=== PATIENT | male | born 1995 | race Asian ===

== ENCOUNTER 2021-02-09 18:27 | Emergency (ER) | payer OTHER ==
[~2021-02-09] VITALS: Ht 175.3 cm; Wt 73.5 kg
--- NOTE | 2021-02-09 18:54 | NUR ---
PT C/O CHEST PAIN NON RADIATING WITH SOB X 1HR PER PT. DENIES DIZZINESS, N/V AT THIS TIME. PT SEEN & EVAL'D BY LEONARDO ARIAS. PLACED ON [employer] REPRESENTATIVE DOOR TO DOOR, ST. WILL CONT TO MONITOR.
[2021-02-09] MEDS ORDERED: ACETAMINOPHEN ES 500 MG TABLET ONE (18:56)
[2021-02-09 18:58] LABS: BASOPHILS # (AUTO) 0.1 /CMM (0.0-0.2); BASOPHILS % (AUTO) 0.3 % (0.0-2.0); HEMATOCRIT 43 % (39-51); LYMPHOCYTES # (AUTO) 11.3 /CMM (0.8-4.8); LYMPHOCYTES % (AUTO) 61.1 % (20.0-44.0); MEAN CORPUSCULAR HGB CONC 35 g/dl (31.0-36.0); MEAN CORPUSCULAR VOLUME 77 fL (80-96); MONOCYTES # (AUTO) 1.2 /CMM (0.1-1.30); MONOCYTES % (AUTO) 6.2 % (2.0-12.0); NEUTROPHILS # (AUTO) 5.8 /CMM (1.8-8.9); NEUTROPHILS % (AUTO) 31.4 % (43.0-81.0); PLATELET COUNT (AUTO) 133 /CMM (150-450); RED BLOOD CELL COUNT(AUTO) 5.67 MIL/uL (4.5-6.0); WHITE BLOOD COUNT (AUTO) 18.6 K/uL (4.3-11.0)
[2021-02-09] MEDS ORDERED: ACETAMINOPHEN ES 500 MG TABLET PO ONE (19:00)
[2021-02-09] MEDS ORDERED: IV NS 0.9% 1,000 ML BAG IV ONE (19:00)
[2021-02-09 19:14] LABS: ALANINE AMINOTRANSFERASE 60 U/L (12-78); ALBUMIN 4.1 g/dL (3.4-5.0); ALKALINE PHOSPHATASE 78 U/L (46-116); ASPARTATE AMINOTRANSFERASE 36 U/L (15-37); BILIRUBIN,DIRECT 0.1 mg/dL (0.0-0.2); BILIRUBIN,TOTAL 0.4 mg/dL (0.2-1.0); CALCIUM, SERUM 8.6 mg/dL (8.5-10.1); CARBON DIOXIDE 26 mmol/L (21-32); CHLORIDE 103 mmol/L (98-107); CREATININE 1.2 mg/dL (0.6-1.3); GLUCOSE 115 mg/dL (74-106); POTASSIUM 3.5 mmol/L (3.5-5.1); SODIUM SERUM 138 mmol/L (136-145); TOTAL PROTEIN, SERUM 7.4 g/dL (6.4-8.2); UREA NITROGEN, BLOOD 8 mg/dL (7-18)
[2021-02-09 19:44] LABS: BILIRUBIN,URINE Negative (NEGATIVE); COLOR,URINE YELLOW (YELLOW); LEUKOCYTE ESTERASE ,URINE Negative (NEGATIVE); NITRITE, URINE Negative (NEGATIVE); PH,URINE 5.5 (5.0-8.0); PROTEIN,URINE Negative (NEGATIVE); UGLUCOSE Negative (NEGATIVE); UROBILINOGEN,URINE 0.2 EU/dL (0.2)
[2021-02-09 19:46] LABS: ALCOHOL, BLOOD < 3 mg/dL (0-0)
[2021-02-09 19:46] LABS: BACTERIA,URINE Rare /HPF (None Seen); SQUAMOUS EPITHELIAL CELL,UR Few /HPF (None Seen); WBC,URINE NONE SEEN /HPF (0-3)
[2021-02-09] MEDS ORDERED: IV NS 0.9% 250 ML IV ONE (20:09)
[2021-02-09] MEDS ORDERED: IOHEXOL-350 100 ML VIAL IV ONE (20:09)
--- NOTE | 2021-02-09 20:18 | NUR ---
RETURNED FROM CT
--- NOTE | 2021-02-09 21:13 | NUR ---
PER LAB COVID NEGATIVE
[2021-02-09] MEDS ORDERED: IBUP-1955 PO (22:35)
[2021-02-09 23:01] LABS: MONOTEST NEGATIVE (NEGATIVE)
--- NOTE | 2021-02-09 23:16 | NUR ---
IV removed. Catheter intact and site benign. Pressure and 4x4 applied to site. No bleeding noted.
--- NOTE | 2021-02-09 23:16 | NUR ---
Patient discharged to home in stable condition. Written and verbal after care instructions given. Patient verbalizes understanding of instruction.
[2021-02-09 23:55] VITALS: BP 115/72
== END 2021-02-09 23:17 | disposition home or self-care (01) ==
LOC: ER 18:55
DX: R07.9 Chest pain, unspecified (principal); Z20.822 Contact with and (suspected) exposure to COVID-19; D72.829 Elevated white blood cell count, unspecified; R16.1 Splenomegaly, not elsewhere classified; R00.0 Tachycardia, unspecified; R79.1 Abnormal coagulation profile; D69.6 Thrombocytopenia, unspecified; R59.0 Localized enlarged lymph nodes
CPT/HCPCS: 36415; 71045; 71275; 80048; 80076; 80307; 80320; 81001; 83605; 84484 ×2; 85025; 85378; 86308; 87040 ×2; 87426; 93005 ×2; 96360; 99285; C9803 ×2; J7030; J7050; Q9967; U0003; G0480